=== PATIENT | male | born 1975 | race Caucasian/White ===

== ENCOUNTER 2016-10-22 12:44 | Day surgery (SDC) | payer SELFPAY | END 2016-10-22 22:05 | disposition home or self-care (01) | DX: K35.80 Unspecified acute appendicitis (principal) ==

== ENCOUNTER 2016-11-28 09:23 | Day surgery (SDC) | payer SELFPAY ==
[~2016-11-28] VITALS: Ht 172.7 cm; Wt 91.0 kg
--- NOTE | 2016-12-03 07:53 | OR ---
ADMIT: 11/28/2016 RM/LOC: [facility] MR#: [id number] [address] JOSE C CRABTREE [address] [place] [address] Operative/Delivery Room Report SEX: M AGE: 41 : 1975 SURGERY DATE: 11/28/2016 SURGEON: Wale Dill MD PREOPERATIVE DIAGNOSIS: Large left inguinal hernia. POSTOPERATIVE DIAGNOSIS: Large indirect left inguinal hernia. PROCEDURE: Dyana mesh repair of large left inguinal hernia. NEEDLE PUNCH MACHINE OPERATOR: LAURA Forbes whose assistance was necessary for tissue retraction and exposure. ANESTHESIA: General. ESTIMATED BLOOD LOSS: 10 mL. DESCRIPTION OF PROCEDURE: The patient was taken to the operating room and placed supine on the operating room table. General anesthesia was established. The left groin was prepped and draped in the standard surgical fashion. An oblique incision was made overlying the left inguinal canal. Dissection proceeded through the subcutaneous tissue to the external oblique aponeurosis. This was incised in the direction of its fibers down to the external ring. The underlying cord structures and large hernia sac were encircled at the pubic tubercle with a Ashley drain. The hernia sac was then carefully dissected away from the cord structures. This was quite inflammatory from chronic inflammation in the area. The sac was dissected back to the internal ring. The sac was opened and there was no incarcerated content. Ligation of the sac was performed at the internal ring with 0 silk suture. This sac was then excised and passed off the field as specimen as was a small cord lipoma which was excised with cautery. The inguinal canal floor was then repaired with a 3 inch x 6 inch Prolene mesh. This was cut to overlap the defect and split down the middle. The mesh tails were reattached ADMIT: 11/28/2016 RM/LOC: [facility] MR#: [id number] [address] JOSE C CRABTREE [address] [place] [address] Operative/Delivery Room Report SEX: M AGE: 41 : 1975 laterally for recreation of the internal ring. This was secured to the internal oblique musculature laterally for that. The mesh was additionally secured to the tissue over the pubic tubercle medially along the iliopubic tract and laterally along the shelving portion of the inguinal ligament in the Dyana manner with 0 silk suture. This provided good overlap of the defect with no tension on the repair. The cord structures were returned to their anatomic position. The external oblique aponeurosis was approximated with 0 Vicryl suture. Cammy's fascia was approximated with 2-0 Vicryl suture. Skin edges were approximated with 4-0 Monocryl in a subcuticular fashion and Dermabond. Local anesthetic was injected. Sponge, needle, and instrument counts were correct at the end of the case. The patient tolerated the procedure well and transferred to the recovery area in stable condition. Wale Dill MD/ marilyn JOB #: [id number] CC: Wale Dill, Attending Physician NO FAMILY PHYSICIAN, Family Physician
== END 2016-11-28 14:50 | disposition home or self-care (01) ==
LOC: SSS 09:23
PROC: 0YU60JZ Supplement Left Inguinal Region with Synthetic Substitute, Open Approach (ICD-10-PCS; principal; 2016-11-28)
DX: K40.90 Unilateral inguinal hernia, without obstruction or gangrene, not specified as recurrent (principal); Z90.49 Acquired absence of other specified parts of digestive tract